=== PATIENT | male | born 1995 | race Hispanic/Latino ===

== ENCOUNTER 2017-04-01 09:12 | Emergency (ER) | payer OTHER ==
[2017-04-01 09:18] VITALS: BP 137/84
[2017-04-01] MEDS ORDERED: NORCO 5/325 PO ONE (09:21)
--- NOTE | 2017-04-01 10:08 | XRay Report ---
XRAY LEFT KNEE 3 VIEWS: 04/01/17 09:12:00 CLINICAL: Pain. FINDINGS: No fracture or dislocation. A bone fragment superior to the tibial tubercle suggests that there may be a history of Dominick-Schlatter disease. However, there is no soft tissue swelling at the tibial tubercle. The patella and patellar tendon are intact. No joint effusion. The soft tissues are normal. IMPRESSION: No acute findings.
--- NOTE | 2017-04-01 12:04 | Emergency Department Report ---
HPI - General Chief Complaint: Extremity Injury, Lower Time Seen by Provider: 04/01/17 10:51 - HPI HPI: The patient is a 21-year-old male who presents for evaluation of left knee pain. The patient reports and his left knee during a training exercise , approximately 1-2 hours prior to arrival. He complains of aching and sharp left knee pain, moderate in severity, exacerbated with weightbearing or ambulation, constant since the injury. Denies, injury elsewhere, leg swelling, paresthesias, motor deficit, or change in color in the lower leg distal to his injury. ED Past Medical Hx - Past Medical History Previous Medical History?: No - Surgical History Past Surgical History?: No - Social History Smoking Status: Never Smoker Substance Use Type: None - Medications Home Medications: Home Medications Medication Instructions Recorded Confirmed Last Taken Type Ibuprofen [Motrin] 800 mg PO Q8HR PRN #15 tablet 04/01/17 Unknown Rx traMADol [Ultram 50 MG tab] 50 mg PO Q6HR PRN #15 tablet 04/01/17 Unknown Rx ED Review of Systems ROS: Stated complaint: LEFT KNEE INJURY Other details as noted in HPI Constitutional: denies: fever ENT: denies: throat or neck pain Respiratory: denies: cough, shortness of breath Cardiovascular: denies: chest pain Endocrine: denies unexplained weight loss or gain Gastrointestinal: denies: abdominal pain, nausea Genitourinary: denies: dysuria Musculoskeletal: reports knee pain denies: leg swelling Skin: denies: rash Neurological: denies: headache Hematological/Lymphatic: denies: easy bleeding or easy bruising Psych: denies sadness or hopelessness Physical Exam - Physical Exam Vital Signs: Vital Signs 04/01/17 09:15 Temperature 98.6 F Pulse Rate 112 H Blood Pressure 137/84 O2 Sat by Pulse 96 Oximetry Physical Exam: General: well-nourished, well-developed, no acute distress Head: Normocephalic, atraumatic Eyes: normal sclera ENT: Mucous membranes are pink and moist Neck: trachea midline, neck supple, No neck stiffness, no cervical adenopathy Respiratory: Breath sounds equal bilaterally, no wheezing, rales, or rhonchi Cardio: S1 and S2 present, no murmurs, rubs, gallops, capillary refill is brisk Abdomen: Normoactive bowel sounds, soft abdomen, no rigidity, no guarding or rebound tenderness Chest WALL/Back: No tenderness to palpation of the chest wall, no CVA tenderness with percussion Musc: No erythema, fluctuance, or warmth to the left knee or surrounding knee, full passive and active range of motion intact, quadriceps extensor tendon function intact, no obvious swelling or effusion, knee medial and inferior joint line tenderness to palpation present, no obvious effusion appreciable, Bushra's and posterior drawer signs are negative, no LCL or MCL laxity, Selwyn's unable to be performed secondary to pain. Leg compartments are soft and pliable, distal sensation and motor function intact, reflexes 2+ and symmetric at the patella and Achilles bilaterally, distal pulses intact. Skin: No rash Neuro: no facial drooping, normal speech Psych: Normal affect ED Course Vital Signs 04/01/17 09:15 Temperature 98.6 F Pulse Rate 112 H Blood Pressure 137/84 O2 Sat by Pulse 96 Oximetry ED Medical Decision Making - Medical Decision Making The patient was seen and examined by myself. The patient is placed on a quality assurance monitor chassis and continuous pulse ox. On initial evaluation, the patient was found to be in no distress. Evaluation orders were placed. The patient is given pain medicine. X-ray of the left knee is negative.The patient was reevaluated and reported that their symptoms were markedly improved. The patient is stable for discharge with outpatient follow-up. The patient is given follow-up and return instructions. The patient expressed understanding and agreed with the plan. The patient is discharged in stable condition. Critical care attestation.: If time is entered above; I have spent that time in minutes in the direct care of this critically ill patient, excluding procedure time. ED Disposition Clinical Impression: Sprain of unspecified site of left knee, initial encounter, Acute pain of left knee Disposition: TO HOME OR SELFCARE Is pt being admited?: No Does the pt Need Aspirin: No Condition: Stable Instructions: Knee Sprain (ED), Arthralgia (ED) Prescriptions: Ibuprofen [Motrin] 800 mg PO Q8HR PRN #15 tablet PRN Reason: Pain traMADol [Ultram 50 MG tab] 50 mg PO Q6HR PRN #15 tablet PRN Reason: Pain Referrals: ROBERTO COONEY MD [Staff Physician] - 3-5 Days Time of Disposition: 12:01
== END 2017-04-01 12:12 | disposition home or self-care (01) ==
LOC: ED 09:12
DX: S83.8X2A Sprain of other specified parts of left knee, initial encounter (principal); X50.0XXA Overexertion from strenuous movement or load, initial encounter; Y93.89 Activity, other specified; Y92.89 Other specified places as the place of occurrence of the external cause; Y99.8 Other external cause status